=== PATIENT | male | born 1985 | race Caucasian/White ===

== ENCOUNTER 2023-08-18 03:08 | Emergency (ER) | payer SELFPAY ==
[2023-08-18] MEDS ORDERED: Ketorolac 30 MG/ML SDV IM ONE (03:22)
[2023-08-18] MEDS ORDERED: Dexamethasone 4 MG/ML SDV IM ONE (03:22)
[2023-08-18] MEDS ORDERED: Take Home: Amoxicillin/Clavulanate K 875-125 MG Tab, 2 Tab Pack PO ONE (03:23)
[2023-08-18 03:25] VITALS: BP 139/88; PULSE 82
== END 2023-08-18 03:40 | disposition home or self-care (01) ==
LOC: VM.ED 03:08
DX: J02.9 Acute pharyngitis, unspecified (principal)
CPT/HCPCS: 96372; 99283; A9270-GY; J1100; J1885